=== PATIENT | male | born 1950 | race Caucasian/White ===

== ENCOUNTER 2016-04-03 20:22 | Emergency (ER) | payer MEDICAID, OTHER ==
[~2016-04-03] VITALS: Ht 170.2 cm; Wt 71.8 kg
[~2016-04-03 20:22] MED LIST: ASPI81TA3 PO; METO100T13 PO; SMV40T PO
[2016-04-03 20:25] VITALS: Ht 170.2 cm; Wt 71.8 kg
[2016-04-03] MEDS ORDERED: ONDANSETRON 4 MG INJ IV STA (20:50)
[2016-04-03] MEDS ORDERED: SOD CHLORIDE 0.9% 500 ML IV STA (20:50)
[2016-04-03] MEDS ORDERED: morphine 4 MG/ML VIAL IV STA (20:50)
--- NOTE | 2016-04-03 20:53 | ERD ---
ER Documentation Chief Complaint Date/Time DATE: 04/03/16 TIME: 20:52 Chief Complaint CP X 1 HR W/ SOB HX HEART ATTACK HPI 66-year-old male history of hypertension, hyperlipidemia, coronary artery disease, bladder CA, right nephrectomy and incisional hernia ambulatory to the ED with a son complaining of acute onset of moderate to severe, sharp and achy, nonradiating epigastric abdominal pain with nausea but no vomiting, diarrhea or constipation. Mild dyspnea which is since resolved. In triage complaint of chest pain but points to his epigastrium. Pain started suddenly while walking around his house. No relieving or exacerbating factors. Denies dysuria, polyuria, hematuria or flank pain. No chest pain or palpitations. No URI symptoms or cough. No hematemesis, hematochezia or melanotic stools. No leg pain or swelling. No fevers or chills. ROS All systems reviewed and are negative except as per history of present illness. Medications Home Meds Active Scripts Pantoprazole* (Protonix*) 40 Mg Tablet.dr, 40 MG PO DAILY, #14 TAB Prov:REX FORDE MD 04/04/16 Tramadol HCl (Tramadol HCl) 50 Mg Tablet, 50 MG PO Q6, #10 TAB Prov:REX FORDE MD 04/04/16 Reported Medications Cyclobenzaprine Hcl* (Cyclobenzaprine Hcl*) 5 Mg Tablet, 5 MG PO DAILY Y for PRN , #60 TAB 04/03/16 Gemfibrozil* (Gemfibrozil*) 600 Mg Tablet, 600 MG PO BID, TAB 04/03/16 Amlodipine Besylate* (Norvasc*) 5 Mg Tablet, 5 MG PO DAILY, TAB 04/03/16 Pantoprazole* (Pantoprazole*) 40 Mg Tablet.dr, 40 MG PO DAILY, TAB 04/03/16 Metoprolol Succinate* (Toprol XL*) 100 Mg Tab.sr.24h, 100 MG PO DAILY, TAB 10/14/13 Aspirin* (Aspirin* Chew) 81 Mg Tab.chew, 81 MG PO DAILY, TAB.CHEW 10/14/13 Discontinued Reported Medications Simvastatin (Simvastatin) 40 Mg Tablet, 40 MG PO HS, TAB 10/14/13 Allergies Allergies: Coded Allergies: Penicillins (Verified Allergy, Unknown, 04/03/16) PMhx/Soc Reviewed in chart. As per HPI. History of Surgery: Yes (bladder surgery; right kidney removed) Anesthesia Reaction: No Hx Neurological Disorder: No Hx Respiratory Disorders: No Hx Cardiac Disorders: Yes (Minor [place] Hx; HTN) Hx Psychiatric Problems: No Hx Miscellaneous Medical Probl: Yes (bladder ca) Hx Alcohol Use: No Hx Substance Use: No Hx Tobacco Use: No ([id number] smoking history quit approximately 9 years ago ) FmHx Family history of hypertension but no CAD, stroke or cancer. Physical Exam Vitals Vital Signs Date Time Temp Pulse Resp B/P Pulse Ox O2 Delivery O2 Flow Rate FiO2 04/04/16 00:28 98.7 69 20 165/95 98 Room Air 04/03/16 22:36 66 20 102/47 100 Room Air 04/03/16 20:25 97.3 95 20 236/101 100 Physical Exam Const: Alert, moderate distress due to pain. Head: Atraumatic Eyes: Normal Conjunctiva ENT: Normal External Ears, Nose and Mouth. Neck: Full range of motion. Nontender. Resp: Clear to auscultation bilaterally Cardio: Regular rate and rhythm, no murmurs Abd: Soft, epigastric and right upper quadrant tenderness. Incisional hernia easily reducible. Skin: No petechiae or rashes Back: No midline or flank tenderness Ext: No cyanosis, or edema Neur: Awake and alert Psych: Normal Mood and Affect Result Diagram: 04/03/16200504/03/162005 Results 24 hrs Laboratory Tests Test 04/03/16 20:06 Alanine Aminotransferase (ALT/SGPT) 23IU/L Albumin 4.8g/dl Albumin/Globulin Ratio 1.11 Alkaline Phosphatase 162IU/L Anion Gap 23 Aspartate Amino Transf (AST/SGOT) 26IU/L Basophils # 0.110^3/ul Basophils % 1.1% Blood Urea Nitrogen 15mg/dl Calcium Level 10.5mg/dl Carbon Dioxide Level 25mmol/L Chloride Level 103mmol/L Creatinine 1.00mg/dl Direct Bilirubin 0.00mg/dl Eosinophils # 0.510^3/ul Eosinophils % 4.0% Globulin 4.30g/dl Glucose Level 90mg/dl Hematocrit 43.5% Hemoglobin 13.9g/dl Indirect Bilirubin 0.1mg/dl Lipase 135U/L Lymphocytes # 3.210^3/ul Lymphocytes % 24.5% Mean Corpuscular Hemoglobin 26.4pg Mean Corpuscular Hemoglobin Concent 32.0g/dl Mean Corpuscular Volume 82.5fl Mean Platelet Volume 11.1fl Monocytes # 0.910^3/ul Monocytes % 6.6% Neutrophils # 8.410^3/ul Neutrophils % 63.5% Nucleated Red Blood Cells # 0.010^3/ul Nucleated Red Blood Cells % 0.0/100WBC Platelet Count 66322^3/UL Potassium Level 4.0mmol/L Red Blood Count 5.2710^6/ul Red Cell Distribution Width 15.8% Sodium Level 147mmol/L Total Bilirubin 0.1mg/dl Total Protein 9.1g/dl Troponin I < 0.010ng/ml White Blood Count 13.210^3/ul Current Medications Medications (Trade) Dose Ordered Sig/Rao Route PRN Reason Start Time Stop Time Status Last Admin Dose Admin Sodium Chloride (NS) 500 ml @ 500 mls/hr Q1H STAT IV 04/03/16 20:50 04/03/16 21:49 DC 04/03/16 21:32 Morphine Sulfate (morphine) 4 mg ONCE STAT IV 04/03/16 20:50 04/03/16 20:52 DC 04/03/16 21:35 Ondansetron HCl (Zofran Inj) 4 mg ONCE STAT IV 04/03/16 20:50 04/03/16 20:52 DC 04/03/16 21:35 Pantoprazole (Protonix Iv) 40 mg ONCE ONCE IV 04/03/16 21:00 04/03/16 21:01 DC 04/03/16 21:35 RHYTHM STRIP INTERPRETATION: Time: 20:50. Sinus rhythm. Ventricular rate 72. No ectopy indication: Abdominal pain. EKG: Time: 20:31. Sinus rhythm. Ventricular rate 77, normal CO and QRS intervals. No acute ST segment elevation or depression. No axis deviation or ectopy. EP Impression: Normal EKG IMAGING: PROCEDURE: CT Abdomen and Pelvis without contrast. CLINICAL INDICATION: Right upper quadrant pain. History of right nephrectomy and bladder cancer.. TECHNIQUE: CT scan of the abdomen and pelvis was performed on a multidetector slice CT scanner. No intravenous contrast material was utilized. Sagittal and coronal reformatted images were obtained from the axial source images. Images were reviewed on a high-resolution PACS workstation. Exam CTDlvol = 10 mGy and DLP = 549 Gy-cm. One of the following 3 dose reduction techniques were used: Automated exposure control; adjustment of the mA and/or kV according to patient size; or use of iterative reconstruction technique. COMPARISON: CT chest 10/14/2013 FINDINGS: There is a nonobstructing right and transverse colon hernia of the anterior lateral right abdominal wall just below the liver. There is no obstruction or ileus. The appendix is visualized and is normal in size. There is no evidence for acute appendicitis. There is no evidence for diverticulitis. There is no free fluid. The liver is enlarged measuring 20 cm length.. No intrahepatic lesions are identified. The gallbladder is well distended with slight surrounding infiltration.. There is no definite biliary ductal dilation. Pancreas is normal in appearance. Spleen is unremarkable.. There are no adrenal masses. The aorta is normal caliber. There are atherosclerotic dash calcification. There are multiple upper abdominal retroperitoneal surgical clips adjacent to the IVC and aorta. Right kidney is absent. Left kidney is normal in appearance without hydronephrosis, mass or calculus. Ureters are of normal caliber. There are surgical clips adjacent to the right lateral and base of the urinary bladder. Urinary bladder is unremarkable. Prostate gland is unremarkable. The bones are unremarkable. Limited evaluation lung bases demonstrates emphysematous changes. Right middle lobe punctate calcifications/granulomas present. IMPRESSION: 1. Right upper abdominal anterior lateral ventral hernia containing nonobstructed right and transverse colon. 2. Status post right nephrectomy. Surgical clips adjacent to the right lateral aspect the urinary bladder. Left kidney and urinary bladder otherwise unremarkable. 3. Well distended gallbladder with slight surrounding infiltration. No calcified gallstones are gross wall thickening. No definite biliary ductal dilatation. Correlation with ultrasound is recommended. 4. Hepatomegaly. 5. Atherosclerotic vascular calcifications. 6. Emphysematous changes at the lung bases. Right middle lobe punctate calcification consistent with a granuloma, unchanged. RPTAT: HMVK .Camilo Swanson MD, MD Date Time Electronically viewed and signed by .Camilo Swanson MD, on 04/03/2016 23:06 .K/ PROCEDURE: XR Chest. CLINICAL INDICATION: Chest pain. Abdominal pain TECHNIQUE: Portable AP semi erect view of the chest was obtained. COMPARISON: 11/04/2013 FINDINGS: The cardiomediastinal silhouette is within normal limits. The lungs are clear. There is no evidence for pleural effusion, pneumothorax or pulmonary vascular congestion. The osseous structures are intact with no evidence for acute abnormality. No evidence of free air below the diaphragm. RPTAT:HJJR IMPRESSION: No evidence for acute intrathoracic pathology or change from prior study. Physician Rianna Date Time Electronically viewed and signed by Physician Rianna on 04/03/2016 21:35 JR/ PROCEDURE: ULTRASOUND LIMITED ABDOMEN CLINICAL INDICATION: 66-year-old male with abdominal pain. TECHNIQUE: Multiple sonographic of the right upper quadrant of the abdomen were obtained. The images were reviewed on a PACS workstation. COMPARISON: CT abdomen/pelvis April 03, 2016. FINDINGS: The pancreas is not well visualized secondary to overlying bowel gas. The liver displays normal echogenicity. The liver measures 18.0 cm in length. No evidence of intrahepatic biliary ductal dilatation is seen. The portal and hepatic veins are unremarkable. The gallbladder demonstrates no wall thickening, sludge, nor stones. No pericholecystic fluid is seen. The common bile duct measures 4.2 mm and is not dilated. The right kidney is not visualized consistent with history of prior nephrectomy. No free fluid is seen. IMPRESSION: Status post right nephrectomy otherwise unremarkable right upper quadrant abdominal ultrasound. .Niko Huddleston MD, MD Date Time Electronically viewed and signed by .Niko Huddleston MD, on 04/04/2016 00:00 .M/ Procedures/MDM DOCUMENTS REVIEWED: ED nurse, prior ED, prior records ED COURSE: Morphine 4 mg/Zofran 4 mg IV. REEXAMINATION/REEVALUATION: Time: 23: 40. Doing well. Pain resolved. [employer]-year-old male history of hypertension, hyperlipidemia, coronary artery disease, bladder CA, right nephrectomy and incisional hernia ambulatory to the ED complaining of epigastric abdominal pain. No chest pain, ischemic EKG changes, elevated troponin or other signs of acute coronary syndrome. Epigastric right upper quadrant abdominal tenderness but no rebound or evidence of acute peritonitis. CT reveals possible gallbladder inflammation but ultrasound is unremarkable. No pancreatitis. No evidence of metastatic disease. Possible PUD/gastritis/GERD. Abdominal pain of unknown etiology. In the absence of signs of serious disease symptomatic treatment with urgent, mandatory outpatient followup is appropriate. Stable for discharge with precautionary instructions and outpatient followup as counseled. Counseled patient and family regarding diagnostic workup, diagnosis and need for followup. Understands to return to ED if symptoms recur, worsen or any other concerns. Departure Diagnosis: Primary Impression: Abdominal pain, acute, epigastric Additional Impressions: Incisional hernia without obstruction or gangrene H/O carcinoma of bladder H/O unilateral nephrectomy Condition: Stable REX FORDE MD Apr 03, 2016 20:53
[2016-04-03 20:57] LABS: ADD SCAN DIFF NO
[2016-04-03 21:00] LABS: BASOPHIL # 0.1 10^3/ul (0.0-0.1); BASOPHILS % 1.1 % (0.0-2.0); EOSINOPHILS # 0.5 10^3/ul (0.0-0.5); HEMATOCRIT 43.5 % (42.0-52.0); HEMOGLOBIN 13.9 g/dl (14.0-18.0); LYMPHOCYTES # 3.2 10^3/ul (0.8-2.9); LYMPHOCYTES % 24.5 % (15.0-51.0); MEAN CORPUSCULAR HEMOGLOBIN 26.4 pg (29.0-33.0); MEAN CORPUSCULAR VOLUME 82.5 fl (82.0-101.0); MEAN PLATELET VOLUME 11.1 fl (7.4-10.4); MONOCYTE # 0.9 10^3/ul (0.3-0.9); MONOCYTES % 6.6 % (0.0-11.0); NEUTROPHIL # 8.4 10^3/ul (1.6-7.5); NEUTROPHILS % 63.5 % (39.0-77.0); PLATELET COUNT 317 10^3/UL (140-415); RED BLOOD COUNT 5.27 10^6/ul (4.70-6.10); RED CELL DISTRIBUTION WIDTH 15.8 % (11.5-14.5); WHITE BLOOD COUNT 13.2 10^3/ul (4.8-10.8)
[2016-04-03] MEDS ORDERED: PANTOPRAZOLE 40 MG INJ IV ONE (21:00)
[2016-04-03 21:17] LABS: ALBUMIN 4.8 g/dl (3.3-4.9); CHLORIDE 103 mmol/L (97-110)
[2016-04-03 21:18] LABS: SODIUM 147 mmol/L (135-144)
[2016-04-03 21:20] LABS: ALBUMIN/GLOBULIN RATIO 1.11; ALKALINE PHOSPHATASE 162 IU/L (42-121); ANION GAP 23 (8-16); ASPARTATE AMINO TRANSFERASE 26 IU/L (15-46); BILIRUBIN,INDIRECT 0.1 mg/dl (0-1.1); BILIRUBIN,TOTAL 0.1 mg/dl (0.2-1.3); BLOOD UREA NITROGEN 15 mg/dl (7-20); CARBON DIOXIDE 25 mmol/L (21-31); TOTAL PROTEIN 9.1 g/dl (6.1-8.1)
[2016-04-03] MEDS ORDERED: AMLO5TAB4 PO (21:20)
[2016-04-03] MEDS ORDERED: PANT40TA4 PO (21:20)
[2016-04-03 21:21] LABS: ALANINE AMINOTRANSFERASE 23 IU/L (13-69); CALCIUM 10.5 mg/dl (8.4-10.2); GLUCOSE 90 mg/dl (70-220)
[2016-04-03] MEDS ORDERED: GEMF600T60 PO (21:21)
[2016-04-03] MEDS ORDERED: CYCL5TAB PO (21:21)
[2016-04-03 21:34] LABS: TROPONIN-I < 0.010 ng/ml (0.00-0.12)
--- NOTE | 2016-04-03 21:35 | RADRPT ---
PROCEDURE: XR Chest. CLINICAL INDICATION: Chest pain. Abdominal pain TECHNIQUE: Portable AP semi erect view of the chest was obtained. COMPARISON: 11/04/2013 FINDINGS: The cardiomediastinal silhouette is within normal limits. The lungs are clear. There is no evidenc e for pleural effusion, pneumothorax or pulmonary vascular congestion. The osseous structures are i ntact with no evidence for acute abnormality. No evidence of free air below the diaphragm. RPTAT:HJJR IMPRESSION: No evidence for acute intrathoracic pathology or change from prior study. Physician Rianna Date Time Electronically viewed and signed by Physician Rianna on 04/03/2016 21:35 JR/
--- NOTE | 2016-04-03 23:06 | RADRPT ---
PROCEDURE: CT Abdomen and Pelvis without contrast. CLINICAL INDICATION: Right upper quadrant pain. History of right nephrectomy and bladder cancer.. TECHNIQUE: CT scan of the abdomen and pelvis was performed on a multidetector slice CT scanner. N o intravenous contrast material was utilized. Sagittal and coronal reformatted images were obtained from the axial source images. Images were reviewed on a high-resolution PACS workstation. Exam CTDl vol = 10 mGy and DLP = 549 Gy-cm. One of the following 3 dose reduction techniques were used: Autom ated exposure control; adjustment of the mA and/or kV according to patient size; or use of iterative reconstruction technique. COMPARISON: CT chest 10/14/2013 FINDINGS: There is a nonobstructing right and transverse colon hernia of the anterior lateral right abdominal wall just below the liver. There is no obstruction or ileus. The appendix is visualized and is nor mal in size. There is no evidence for acute appendicitis. There is no evidence for diverticulitis. There is no free fluid. The liver is enlarged measuring 20 cm length.. No intrahepatic lesions are identified. The gallbla dder is well distended with slight surrounding infiltration.. There is no definite biliary ductal di lation. Pancreas is normal in appearance. Spleen is unremarkable.. There are no adrenal masses. T he aorta is normal caliber. There are atherosclerotic dash calcification. There are multiple upper abdominal retroperitoneal surgical clips adjacent to the IVC and aorta. Right kidney is absent. Left kidney is normal in appearance without hydronephrosis, mass or calculu s. Ureters are of normal caliber. There are surgical clips adjacent to the right lateral and base of the urinary bladder. Urinary bladder is unremarkable. Prostate gland is unremarkable. The bones are unremarkable. Limited evaluation lung bases demonstrates emphysematous changes. Right middle lobe punctate calcif ications/granulomas present. IMPRESSION: 1. Right upper abdominal anterior lateral ventral hernia containing nonobstructed right and transve rse colon. 2. Status post right nephrectomy. Surgical clips adjacent to the right lateral aspect the urinary bladder. Left kidney and urinary bladder otherwise unremarkable. 3. Well distended gallbladder with slight surrounding infiltration. No calcified gallstones are gr oss wall thickening. No definite biliary ductal dilatation. Correlation with ultrasound is recommend ed. 4. Hepatomegaly. 5. Atherosclerotic vascular calcifications. 6. Emphysematous changes at the lung bases. Right middle lobe punctate calcification consistent wit h a granuloma, unchanged. RPTAT: HMVK .Camilo Swanson MD, Date Time Electronically viewed and signed by .Camilo Swanson MD, on 04/03/2016 23:06 .K/
--- NOTE | 2016-04-04 00:01 | RADRPT ---
PROCEDURE: ULTRASOUND LIMITED ABDOMEN CLINICAL INDICATION: 66-year-old male with abdominal pain. TECHNIQUE: Multiple sonographic of the right upper quadrant of the abdomen were obtained. The imag es were reviewed on a PACS workstation. COMPARISON: CT abdomen/pelvis April 03, 2016. FINDINGS: The pancreas is not well visualized secondary to overlying bowel gas. The liver displays normal echogenicity. The liver measures 18.0 cm in length. No evidence of intrah epatic biliary ductal dilatation is seen. The portal and hepatic veins are unremarkable. The gallbladder demonstrates no wall thickening, sludge, nor stones. No pericholecystic fluid is see n. The common bile duct measures 4.2 mm and is not dilated. The right kidney is not visualized consistent with history of prior nephrectomy. No free fluid is seen. IMPRESSION: Status post right nephrectomy otherwise unremarkable right upper quadrant abdominal ultrasound. .Niko Huddleston MD, MD Date Time Electronically viewed and signed by .Niko Huddleston MD, on 04/04/2016 00:00 .M/
[2016-04-04] MEDS ORDERED: TRAM50TA2 PO (00:13)
[2016-04-04] MEDS ORDERED: PANT40TA3 PO (00:13)
[2016-04-04 00:28] VITALS: BP 165/95; PULSE 69; RESP 20; TEMP 98.7
== END 2016-04-04 00:30 | disposition home or self-care (01) ==
LOC: E/R 20:22
DX: R10.13 Epigastric pain (principal); K43.2 Incisional hernia without obstruction or gangrene; I10 Essential (primary) hypertension; Z85.51 Personal history of malignant neoplasm of bladder; Z79.82 Long term (current) use of aspirin; Z90.5 Acquired absence of kidney; Z87.891 Personal history of nicotine dependence
CPT/HCPCS: 36415; 71010; 74176; 76705; 80053; 83690; 84484; 85025; 93005; 96374; 96375; C9113; J2270; J2405; J7040; Z7502

== ENCOUNTER 2016-06-05 19:42 | Emergency (ER) | payer OTHER ==
[~2016-06-05] VITALS: Ht 170.2 cm; Wt 68.2 kg
[~2016-06-05 19:42] MED LIST changes: +AMLO5TAB4 PO; +CYCL5TAB PO; +GEMF600T60 PO; +PANT40TA3 PO; +PANT40TA4 PO; -SMV40T PO; +TRAM50TA2 PO
[2016-06-05 19:59] VITALS: Ht 170.2 cm; Wt 68.2 kg
[2016-06-05] MEDS ORDERED: ONDANSETRON 4 MG INJ IV STA (21:40)
[2016-06-05] MEDS ORDERED: morphine 4 MG/ML VIAL IV STA (21:40)
[2016-06-05] MEDS ORDERED: FAMOTIDINE 20 MG INJ IV STA (21:40)
--- NOTE | 2016-06-05 22:19 | RADRPT ---
PROCEDURE: Portable chest x-ray. CLINICAL INDICATION: Abdominal pain. TECHNIQUE: Portable AP view of the chest. COMPARISON: 04/03/2016. FINDINGS: There is minimal bibasilar atelectasis. No pulmonary edema or conolidation is identified. There ar e aortic calcifications. The cardiac silhouette is magnified. No pleural effusion is seen. There is no pneumothorax. There is no pneumoperitoneum. IMPRESSION: 1. No evidence of acute cardiopulmonary disease. 2. Aortic atherosclerosis. 3. No pneumoperitoneum. RPTAT: HTAR .John Najera MD, Date Time Electronically viewed and signed by .John Najera MD, on 06/05/2016 22:19 .R/
[2016-06-05 22:20] LABS: ADD SCAN DIFF NO
[2016-06-05 22:21] LABS: BASOPHIL # 0.2 10^3/ul (0.0-0.1); EOSINOPHILS # 0.4 10^3/ul (0.0-0.5); EOSINOPHILS % 2.7 % (0.0-7.0); HEMATOCRIT 38.6 % (42.0-52.0); HEMOGLOBIN 12.1 g/dl (14.0-18.0); LYMPHOCYTES # 2.3 10^3/ul (0.8-2.9); LYMPHOCYTES % 13.9 % (15.0-51.0); MEAN CORPUSCULAR HEMOGLOBIN 26.1 pg (29.0-33.0); MEAN CORPUSCULAR HGB CONC 31.3 g/dl (32.0-37.0); MEAN CORPUSCULAR VOLUME 83.2 fl (82.0-101.0); MEAN PLATELET VOLUME 12.4 fl (7.4-10.4); MONOCYTE # 0.9 10^3/ul (0.3-0.9); MONOCYTES % 5.5 % (0.0-11.0); NEUTROPHIL # 12.6 10^3/ul (1.6-7.5); NEUTROPHILS % 76.4 % (39.0-77.0); PLATELET COUNT 278 10^3/UL (140-415); RED BLOOD COUNT 4.64 10^6/ul (4.70-6.10); RED CELL DISTRIBUTION WIDTH 15.4 % (11.5-14.5); WHITE BLOOD COUNT 16.5 10^3/ul (4.8-10.8)
--- NOTE | 2016-06-05 22:22 | RADRPT ---
PROCEDURE: CT Abdomen and pelvis without contrast. CLINICAL INDICATION: Abdominal pain. TECHNIQUE: CT scan of the abdomen and pelvis was performed on a multi-detector high-resolution CT scanner. Contiguous axial images were obtained from the lung bases to the ischial tuberosities wit hout intravenous contrast. Coronal and sagittal reformatted images were also obtained. Images were reviewed on the PACS workstation. One or more of the following dose reduction techniques were used: - Automated exposure control. - Adjustment of the mA and/or kV according to patient size. - Use of iterative reconstruction technique. Exam CTD/vol = 8.80 mGy. Total exam DLP = 463.10 mGy-cm. COMPARISON: 04/03/2016. FINDINGS: Evaluation of the lung bases demonstrates mild bibasilar atelectasis. There are emphysematous redmond es bilaterally. Abdomen: The liver is normal in size. There is no focal mass or dilatation of the biliary tree. T he gallbladder is not distended. The spleen, pancreas and bilateral adrenal glands are within ivy l limits. The patient status post right nephrectomy. The left kidney is normal in size with no con tour deforming mass identified. There is no radiopaque renal or ureteral calculus identified. Ther e is no hydronephrosis or hydroureter. There is no retroperitoneal adenopathy. The abdominal aorta is of normal caliber with scattered atherosclerotic calcifications. Again demonstrated is a large right ventral abdominal wall hernia containing the right and transvers e colon. There is no bowel obstruction or free air. A normal appendix is identified. There is no diverticulosis or diverticulitis. There is no ascites. Pelvis: The bladder is unremarkable. There are bilateral small inguinal hernias containing fat. T he prostate and seminal vesicles are within normal limits. There is no significant pelvic adenopath y or free fluid. Evaluation of the osseous structures demonstrates no suspicious lytic or blastic lesion. IMPRESSION: Large right ventral abdominal wall hernia containing right and transverse colon, unchanged. There i s no bowel obstruction. Bilateral small inguinal hernias containing fat. Status post right nephrectomy. Vascular calcifications reflective of atherosclerosis. Mild bibasilar atelectasis and emphysematous changes. Otherwise no acute abnormality identified within the abdomen and pelvis. .Camden Strickland, MD, Date Time Electronically viewed and signed by .Camden Strickland MD, on 06/05/2016 22:21 .T/
[2016-06-05 22:23] LABS: ADD UMIC YES; URINE BILIRUBIN (Dip) NEGATIVE (NEGATIVE); URINE BLOOD (Dip) 2+ (NEGATIVE); URINE COLOR LT. YELLOW (YELLOW); URINE GLUCOSE (Dip) NEGATIVE (NEGATIVE); URINE KETONES (Dip) NEGATIVE (NEGATIVE); URINE LEUKOCYTE ESTERASE (Dip) NEGATIVE (NEGATIVE); URINE NITRITE (Dip) NEGATIVE (NEGATIVE); URINE TOTAL PROTEIN (Dip) NEGATIVE (NEGATIVE); URINE UROBILINOGEN (Dip) 0.2 E.U./dL (0.1-1.0)
[2016-06-05 22:31] LABS: INR 0.95; PROTIME 12.7 Sec (12.2-14.2)
[2016-06-05 22:32] LABS: PARTIAL THROMBOPLASTIN TIME 36.7 Sec (25.0-35.0)
[2016-06-05 22:33] LABS: ALANINE AMINOTRANSFERASE 20 IU/L (13-69); ALBUMIN 4.4 g/dl (3.3-4.9); ALBUMIN/GLOBULIN RATIO 0.91; ALKALINE PHOSPHATASE 170 IU/L (42-121); ANION GAP 16 (8-16); ASPARTATE AMINO TRANSFERASE 17 IU/L (15-46); BLOOD UREA NITROGEN 19 mg/dl (7-20); CARBON DIOXIDE 21 mmol/L (21-31); CHLORIDE 106 mmol/L (97-110); GLUCOSE 112 mg/dl (70-220); POTASSIUM 3.9 mmol/L (3.5-5.1); SODIUM 139 mmol/L (135-144); TOTAL PROTEIN 9.2 g/dl (6.1-8.1)
[2016-06-05 22:38] LABS: TRANSITIONAL EPI CELLS,URINE FEW
[2016-06-05 22:58] LABS: TROPONIN-I < 0.012 ng/ml (0.00-0.12)
[2016-06-05] MEDS ORDERED: HYDROmorphONE 1 MG/ML SYG IV STA (23:12)
[2016-06-06] MEDS ORDERED: SOD CHLORIDE 0.9% 1,000 ML IV SCH (01:19)
[2016-06-06] MEDS ORDERED: NACL 0.9% 3 ML SYG IV SCH (01:30)
[2016-06-06] MEDS ORDERED: ONDANSETRON 4 MG TAB PO PRN (01:30)
[2016-06-06] MEDS ORDERED: ACETAMINOPHEN 325 MG TAB PO PRN (01:30)
[2016-06-06] MEDS ORDERED: HYDROmorphONE 1 MG/ML SYG IV PRN (01:30)
--- NOTE | 2016-06-06 01:31 | ERA ---
ER Documentation Chief Complaint Date/Time DATE: 06/06/16 TIME: 01:30 Chief Complaint SEVERE MID ABDOMINAL PAIN X N/V. B/P HIGH HPI This is a 64 mL severe mid abdominal pain with mild nausea and one episode of vomiting which nonbilious nonbloody. Pain radiates to the epigastric region up to the chest. Noted that his blood pressure is high. Pain is mild to moderate intensity. No other current complaints. ROS All systems reviewed and are negative except as per history of present illness. Medications Home Meds Reported Medications Cyclobenzaprine Hcl* (Cyclobenzaprine Hcl*) 5 Mg Tablet, 5 MG PO DAILY Y for PRN , #60 TAB 04/03/16 Gemfibrozil* (Gemfibrozil*) 600 Mg Tablet, 600 MG PO BID, TAB 04/03/16 Amlodipine Besylate* (Norvasc*) 5 Mg Tablet, 5 MG PO DAILY, TAB 04/03/16 Pantoprazole* (Pantoprazole*) 40 Mg Tablet.dr, 40 MG PO DAILY, TAB 04/03/16 Metoprolol Succinate* (Toprol XL*) 100 Mg Tab.sr.24h, 100 MG PO DAILY, TAB 10/14/13 Aspirin* (Aspirin* Chew) 81 Mg Tab.chew, 81 MG PO DAILY, TAB.CHEW 10/14/13 Discontinued Scripts Pantoprazole* (Protonix*) 40 Mg Tablet.dr, 40 MG PO DAILY, #14 TAB Prov:REX FORDE MD 04/04/16 Tramadol HCl (Tramadol HCl) 50 Mg Tablet, 50 MG PO Q6, #10 TAB Prov:REX FORDE MD 04/04/16 Allergies Allergies: Coded Allergies: Penicillins (Verified Allergy, Unknown, 06/05/16) ampicillin (Verified Allergy, Unknown, 06/05/16) PMhx/Soc History of Surgery: Yes (bladder surgery; right kidney removed) Anesthesia Reaction: No Hx Neurological Disorder: No Hx Respiratory Disorders: No Hx Cardiac Disorders: Yes (Minor [place] Hx; HTN,high cholesterol) Hx Psychiatric Problems: No Hx Miscellaneous Medical Probl: Yes (bladder ca) Hx Alcohol Use: Yes (socially) Hx Substance Use: No Hx Tobacco Use: Yes (00-syrn-icth smoking history quit approximately 9 years ago) Smoking Status: Former smoker Physical Exam Vitals Vital Signs Date Time Temp Pulse Resp B/P Pulse Ox O2 Delivery O2 Flow Rate FiO2 06/06/16 00:00 83 161/87 06/05/16 22:05 80 20 174/100 100 Room Air 06/05/16 19:59 98.9 91 20 191/106 97 Physical Exam Const: [] Head: Atraumatic Eyes: Normal Conjunctiva ENT: Normal External Ears, Nose and Mouth. Neck: Full range of motion..~ No meningismus. Resp: Clear to auscultation bilaterally Cardio: Regular rate and rhythm, no murmurs Abd: Soft, non tender, non distended. Normal bowel sounds Skin: No petechiae or rashes Back: No midline or flank tenderness Ext: No cyanosis, or edema Neur: Awake and alert Psych: Normal Mood and Affect Result Diagram: 06/05/16219906/05/162199 Results 24 hrs Laboratory Tests Test 06/05/16 22:00 White Blood Count 16.510^3/ul Red Blood Count 4.6410^6/ul Hemoglobin 12.1g/dl Hematocrit 38.6% Mean Corpuscular Volume 83.2fl Mean Corpuscular Hemoglobin 26.1pg Mean Corpuscular Hemoglobin Concent 31.3g/dl Red Cell Distribution Width 15.4% Platelet Count 64355^3/UL Mean Platelet Volume 12.4fl Neutrophils % 76.4% Lymphocytes % 13.9% Monocytes % 5.5% Eosinophils % 2.7% Basophils % 1.0% Nucleated Red Blood Cells % 0.0/100WBC Neutrophils # 12.610^3/ul Lymphocytes # 2.310^3/ul Monocytes # 0.910^3/ul Eosinophils # 0.410^3/ul Basophils # 0.210^3/ul Nucleated Red Blood Cells # 0.010^3/ul Prothrombin Time 12.7Sec Prothrombin Time Ratio 1.0 INR International Normalized Ratio 0.95 Activated Partial Thromboplast Time 36.7Sec Urine Color LT. YELLOW Urine Clarity CLEAR Urine pH 5.5 Urine Specific [place] 1.015 Urine Ketones NEGATIVE Urine Nitrite NEGATIVE Urine Bilirubin NEGATIVE Urine Urobilinogen 0.2 E.U./dL Urine Leukocyte Esterase NEGATIVE Urine Microscopic RBC 5-10/HPF Urine Microscopic WBC 0-2/HPF Urine Transitional Epithelial Cells FEW Urine Hemoglobin 2+ Urine Glucose NEGATIVE% Urine Total Protein NEGATIVE Sodium Level 139mmol/L Potassium Level 3.9mmol/L Chloride Level 106mmol/L Carbon Dioxide Level 21mmol/L Anion Gap 16 Blood Urea Nitrogen 19mg/dl Creatinine 1.10mg/dl Glucose Level 112mg/dl Calcium Level 10.0mg/dl Total Bilirubin 0.0mg/dl Direct Bilirubin 0.00mg/dl Indirect Bilirubin 0.0mg/dl Aspartate Amino Transf (AST/SGOT) 17IU/L Alanine Aminotransferase (ALT/SGPT) 20IU/L Alkaline Phosphatase 170IU/L Troponin I < 0.012ng/ml Total Protein 9.2g/dl Albumin 4.4g/dl Globulin 4.80g/dl Albumin/Globulin Ratio 0.91 Lipase 144U/L Current Medications Medications (Trade) Dose Ordered Sig/Rao Route PRN Reason Start Time Stop Time Status Last Admin Dose Admin Morphine Sulfate (morphine) 4 mg ONCE STAT IV 06/05/16 21:40 06/05/16 21:42 DC 06/05/16 22:21 Ondansetron HCl (Zofran Inj) 4 mg ONCE STAT IV 06/05/16 21:40 06/05/16 21:42 DC 06/05/16 22:21 Famotidine (Pepcid Iv) 20 mg ONCE STAT IV 06/05/16 21:40 06/05/16 21:42 DC 06/05/16 22:21 Hydromorphone HCl (Dilaudid) 1 mg ONCE STAT IV 06/05/16 23:12 06/05/16 23:13 DC 06/05/16 23:20 Amlodipine Besylate (Norvasc) 5 mg DAILY PO 06/06/16 09:00 UNV Aspirin (Aspirin) 81 mg DAILY PO 06/06/16 09:00 UNV Gemfibrozil (Lopid) 600 mg BID PO 06/06/16 09:00 UNV Metoprolol Succinate (Toprol Xl) 100 mg DAILY PO 06/06/16 09:00 UNV Pantoprazole 40 mg 40 mg DAILY PO 06/06/16 09:00 UNV Sodium Chloride (NS) 1,000 ml @ 100 mls/hr Q10H IV 06/06/16 01:19 UNV IV Flush (NS 3 ml) 3 ml PER PROTOCOL IV 06/06/16 01:30 UNV Ondansetron HCl (Zofran Tab) 4 mg Q6H PRN PO NAUSEA AND/OR VOMITING 06/06/16 01:30 UNV Acetaminophen (Tylenol Tab) 650 mg Q6H PRN PO PAIN LEVEL 1-3 OR FEVER 06/06/16 01:30 UNV Hydromorphone HCl (Dilaudid) 0.5 mg Q4H PRN IV PAIN LEVEL 7-10 06/06/16 01:30 UNV Pantoprazole (Protonix Iv) 40 mg DAILY@06 IV 06/06/16 06:00 UNV Procedures/MDM EKG: Rate/Rhythm: [Normal Sinus Rhythm] QRS, ST, T-waves: [No changes consistent w/ acute ischemia] Impression: [No evidence of ischemia or arrhythmia] Chest X-ray 1V Interpreted by me: Soft Tissue: No acute abnormalities Bones: No acute abnormalities Mediastinum/Cardiac Silhouette/Lungs: [No acute abnormalities] Patient's symptoms are concerning for cardiac cause will require inpatient workup and continuous monitoring. Further w/u for ischemia, arrhythmia, PE or dissection will be deferred to the inpatient team. Accepting Care Team: Current data and ongoing care discussed. Time: 1 AM Primary Provider: Hospitalist Consulting: [XOXOXO] Outstanding Data: none Departure Diagnosis: Primary Impression: Abdominal pain Qualified Code: R10.13 - Epigastric pain Additional Impression: Chest pain Qualified Code: R07.9 - Chest pain, unspecified type Condition: Serious ALICIA KEANE June 06, 2016 01:31
--- NOTE | 2016-06-06 03:44 | HP ---
Date/Time of Note Date/Time of Note DATE: 06/06/16 TIME: 03:23 Assessment/Plan VTE Prophylaxis VTE Prophylaxis Intervention: SCD's Lines/Catheters IV [facility] Assessment/Plan Chief Complaint/Hosp Course This is a 66-year-old male being admitted to telemetry for #1 atypical chest pain -rule out ACS, with the patient's previous questionable history of ID, and risk factors patient will warrant further workup for cardiac causes. Trend troponins, telemetry monitoring, check echo, check lipids check TSH, check hemoglobin A1c. Chest x-ray negative for any acute process. EKG normal sinus rhythm with no overt ST abnormalities noted.Consider cardio consult. #2 abdominal pain: ACS versus abdominal etiology, there do not appear to be any acute findings on the CAT scan. Large ventral hernia is consistent and unchanged compared to previous CT scan from March 2016. This could be something viral in nature as patient has recently eaten out however since there are no signs of any nausea vomiting or diarrhea we cannot definitively say that this is a viral illness. We will continue pain control for pain management, acid petra for possible reflux symptoms. Mildly elevated alkaline phosphatase was also was slightly elevated on previous admission continue to follow. #3 leukocytosis: At the present time no overt source of infection is appreciated , since he does have abdominal pain this possibly could be related to that, however no fevers or any sources noted at this time. We will continue to follow. #4 hypertension continue current home medications amlodipine and metoprolol #5 hyperlipidemia: Continue gemfibrozil, check lipids #6 DVT and GI prophylaxis: SCDs in and acid petra Problems: HPI/ROS Admit Date/Time Admit Date/Time Hx of Present Illness This is a 66-year-old male with past medical history of hypertension hyperlipidemia, and questionable ID who presents to the ED with 1 day of epigastric pain/chest discomfort. Patient states that he was having sharp abdominal pains in the epigastric area that were radiating up to the left chest. Denies any nausea or vomiting. States the pain was sharp 10 out of 10 in intensity. He did have this pain in the past before. And he was worked up for abdominal causes but nothing was found. Patient states that for the last few days he has been eating outside food. No recent fevers cough or sputum production. He does state that his is sick at home. Allergies: Penicillin states that he gets a rash Medications: See MAR ROS Const: Does not appear in overt discomfort Eyes : No pain discharge or redness or change in visual acuity ENT: No pain, sore throat, congestion, congestion, dysphagia or discharge Respiratory: No shortness of breath, cough, sputum, wheezing, or pleuritic pain Cardiovascular: No chest pain, palpitation, PND, or edema GI : States the pain is improved since getting pain medications in the ER Genitourinary: No dysuria, hematuria, flank pain , discharge or CVA tenderness Musculoskeletal: No joint pain, back pain, neck pain, restricted range of motion in neck or joints Skin: No rash, bruising or hives Neuro: No headache, dizziness, syncope, seizure, focal weakness Endocrine: No polyuria, polydipsia, temperature intolerance Psych: No hallucination, depression, anxiety or suicidal ideation PMH/Family/Social Past Medical History Hypertension, hyperlipidemia, ID ? Past Surgical History Cardiac cath 2007, bladder procedure (secondary to bleeding denies cancer), right nephrectomy 2011 (does not know reason) Family History Significant Family History: hypertension Social History Smoking: Quit 8 years ago, 88-ceit-nfip history EtOH none Smoking Status: Former smoker Exam/Review of Systems Vital Signs Vitals Vital Signs Date Time Temp Pulse Resp B/P Pulse Ox O2 Delivery O2 Flow Rate FiO2 06/06/16 00:00 83 161/87 06/05/16 22:05 20 100 Room Air 06/05/16 19:59 98.9 Exam Exam General: The patient is well-developed, well-nourished man in acute distress. The patient is alert oriented -3 lying comfortably in bed. HEENT: Atraumatic, normocephalic. The pupils are equal, round and reactive. Extraocular motor are intact Neck: Supple with full range of motion. No rigidity or meningismus Chest: Nontender Lungs: Clear to auscultation bilaterally no crackles rales or wheezing Heart: Normal S1-S2, Regular rhythm and rate. No murmur Abdomen: Soft, diffuse tenderness to palpation, right abdominal visible lump/ hernia(states it has been that way since patient had right nephrectomy), surgical scars Extremities: Normal to inspection, no edema no cyanosis Neurologic: Normal mental status, speech normal, cranial nerves II through XII are intact, motor and sensory are intact, no focal weakness Additional Comments EKG: Normal sinus rhythm, no overt ST or T-wave abnormalities noted CT of the abdomen and pelvis IMPRESSION: Large right ventral abdominal wall hernia containing right and transverse colon , unchanged. There is no bowel obstruction. Bilateral small inguinal hernias containing fat. Status post right nephrectomy. Vascular calcifications reflective of atherosclerosis. Mild bibasilar atelectasis and emphysematous changes. Otherwise no acute abnormality identified within the abdomen and pelvis. Chest x-ray IMPRESSION: 1. No evidence of acute cardiopulmonary disease. 2. Aortic atherosclerosis. 3. No pneumoperitoneum. Labs Result Diagram: 06/05/16219906/05/162199 Medications Medications Current Medications Amlodipine Besylate (Norvasc) 5 mg DAILY PO ; Start 06/06/16 at 09:00 Aspirin (Aspirin) 81 mg DAILY PO ; Start 06/06/16 at 09:00 Gemfibrozil (Lopid) 600 mg BID PO ; Start 06/06/16 at 09:00 Metoprolol Succinate 100 mg 100 mg DAILY PO ; Start 06/06/16 at 09:00 Sodium Chloride (NS) 1,000 ml @ 100 mls/hr Q10H IV ; Start 06/06/16 at 01:19 Ondansetron HCl (Zofran Tab) 4 mg Q6H PRN PO NAUSEA AND/OR VOMITING; Start 06/06 at 01:30 Acetaminophen (Tylenol Tab) 650 mg Q6H PRN PO PAIN LEVEL 1-3 OR FEVER; Start at 01:30 Hydromorphone HCl (Dilaudid) 0.5 mg Q4H PRN IV PAIN LEVEL 7-10; Start 06/06/16 at 01:30 Pantoprazole (Protonix Iv) 40 mg DAILY@06 IV ; Start 06/06/16 at 06:00 YAMILE BARRAZA June 06, 2016 03:33
[2016-06-06 05:08] LABS: ADD SCAN DIFF NO
[2016-06-06 05:11] LABS: BASOPHIL # 0.1 10^3/ul (0.0-0.1); BASOPHILS % 1.1 % (0.0-2.0); EOSINOPHILS # 0.4 10^3/ul (0.0-0.5); HEMATOCRIT 36.6 % (42.0-52.0); HEMOGLOBIN 11.7 g/dl (14.0-18.0); LYMPHOCYTES # 2.3 10^3/ul (0.8-2.9); MEAN CORPUSCULAR HEMOGLOBIN 26.2 pg (29.0-33.0); MEAN CORPUSCULAR VOLUME 81.9 fl (82.0-101.0); MEAN PLATELET VOLUME 11.1 fl (7.4-10.4); MONOCYTE # 0.8 10^3/ul (0.3-0.9); MONOCYTES % 6.8 % (0.0-11.0); NEUTROPHIL # 8.6 10^3/ul (1.6-7.5); NEUTROPHILS % 69.8 % (39.0-77.0); PLATELET COUNT 317 10^3/UL (140-415); RED BLOOD COUNT 4.47 10^6/ul (4.70-6.10); WHITE BLOOD COUNT 12.3 10^3/ul (4.8-10.8)
[2016-06-06 05:28] LABS: CREATINE KINASE 50 IU/L (23-200)
[2016-06-06 05:30] LABS: ALBUMIN 4.1 g/dl (3.3-4.9); BILIRUBIN,INDIRECT 0.1 mg/dl (0-1.1); BILIRUBIN,TOTAL 0.1 mg/dl (0.2-1.3); CALCIUM 9.4 mg/dl (8.4-10.2); CREATININE 0.93 mg/dl (0.61-1.24); TOTAL PROTEIN 8.2 g/dl (6.1-8.1)
[2016-06-06 06:00] LABS: CK-MB 0.52 ng/ml (0.0-2.4); TROPONIN-I < 0.012 ng/ml (0.00-0.12)
[2016-06-06] MEDS ORDERED: PANTOPRAZOLE 40 MG INJ IV SCH (06:00)
[2016-06-06 06:30] VITALS: TEMP 98.2
[2016-06-06] MEDS ORDERED: AMLODIPINE 5 MG TAB PO SCH (09:00)
[2016-06-06] MEDS ORDERED: PANTOPRAZOLE (EC) 40 MG TAB PO SCH (09:00)
[2016-06-06] MEDS ORDERED: ASPIRIN 81 MG TAB PO SCH (09:00)
[2016-06-06] MEDS ORDERED: METOPROLOL (XL) 100 MG TAB PO SCH (09:00)
[2016-06-06] MEDS ORDERED: GEMFIBROZIL 600 MG TAB PO SCH (09:00)
[2016-06-06] MEDS ORDERED: hydrALAzine 20 MG INJ IV PRN (10:30)
[2016-06-06 10:42] LABS: CREATINE KINASE 51 IU/L (23-200)
[2016-06-06 11:22] LABS: CK-MB 0.84 ng/ml (0.0-2.4); TROPONIN-I < 0.012 ng/ml (0.00-0.12)
--- NOTE | 2016-06-06 12:06 | PDOCDIS ---
Discharge Instructions DIAGNOSIS Discharge Diagnosis: GERD CONDITION Patient Condition: Stable HOME CARE INSTRUCTIONS: Diet Instructions: Low Fat /Cholesterol FOLLOW UP/APPOINTMENTS Appointments Follow-up with your PCP in 1 week. Please have your PCP arrange for outpatient esophagogastroduodenoscopy. OTHER ORDERS: Other Orders: 1. Resume home medications. 2. Take a low cholesterol, low spicy diet. 3. Resume activities as tolerated. KIKO CHURCH NP June 06, 2016 12:06 KIKO CHURCH NP June 06, 2016 12:06
--- NOTE | 2016-06-06 12:25 | QN ---
Documentation Comment Observation Note: Time: 4 hours Family Hx: Negative for diabetes Evaluation: Multiple exams showed improving symptoms and no evidence of clinical decompensation. The patient was seen by Jose Buckner and he felt the patient was stable for discharge. He has already written discharge instructions. Patient will need to follow-up closely with the primary doctor within 24 hours for reevaluation. TUCKER JENKINS MD June 06, 2016 12:25
[2016-06-06 12:34] VITALS: BP 144/68; PULSE 82; RESP 18
--- NOTE | 2016-06-06 12:54 | DS ---
DATE OF ADMISSION: 06/06/2016 DATE OF DISCHARGE: 06/06/2016 TIME OF ADMISSION: 3:23 a.m. TIME OF DISCHARGE: 12:15 p.m. FINAL DIAGNOSES: 1. Abdominal pain secondary to GERD. 2. Leukocytosis of unclear etiology. 3. Essential hypertension. 4. Dyslipidemia. 5. Microcytic, hypochromic anemia. 6. Ventral hernia. [employer] SUPERINTENDENT 1. Scott Parr MD, Cardiology. HOSPITAL COURSE: This is a 66-year-old male with past medical history of essential hypertension, dyslipidemia, and possible coronary artery disease, who presented to the emergency room with 1 day of epigastric pain/discomfort. The patient verbalized the pain as sharp with radiation to the left chest. The patient denies any nausea or vomiting. The patient verbalized the pain as 10/ 10 in intensity. The patient verbalized a similar episode approximately 1 month ago and this has been precipitated by eating from outside. The patient denied any fevers, chills, cough or sputum production. In the emergency room, the patient underwent a CT scan of the abdomen and pelvis that showed a large right ventral abdominal wall hernia containing a right and transverse colon, unchanged from prior examination. The CT also showed bilateral inguinal hernias containing fat. The lower part of the lung that was seen on the abdominal CT scan showed atelectasis and emphysematous changes. The plan was to admit the patient to inpatient setting to evaluate for any underlying acute coronary syndrome. Hence, there was an order for admission to inpatient telemetry floor. A 2D echocardiogram was ordered. Serial troponins were ordered. The patient's serial troponins remained negative x3. The 2D echocardiogram is pending. The patient was evaluated by cardiology and Cardiology felt that the patient does not need any further cardiac evaluation, and the patient's presentation is most probably secondary to gastrointestinal symptoms, possibly GERD versus others. Hence, the patient will be discharged home today to be followed up with outpatient gastroenterology for esophagogastroduodenoscopy in the near future. The patient does not require inpatient hospitalization for elective esophagogastroduodenoscopy. The patient was ruled out for any underlying acute coronary syndrome. DISCHARGE DISPOSITION/PLAN: The patient will be discharged home today. The patient was instructed to resume his home medications. He was instructed to take a low-cholesterol, low spicy diet. He was instructed to resume activities as tolerated. CONDITION AT DISCHARGE: Stable. FOLLOWUP: The patient was instructed to go to his primary care physician within the next week and arrange with primary care physician for outpatient esophagogastroduodenoscopy. PERTINENT LABORATORY AND DIAGNOSTIC DATA: 1. Latest CBC: WBC 12.3, hemoglobin 11.7, hematocrit 36.6, platelet count 317. 2. Latest BMP: Sodium 137, potassium 4.0, chloride 107, carbon dioxide 26, anion gap 11, BUN 17, creatinine 0.93, glucose 107, calcium 9.44, magnesium 2.0. 3. Fasting lipid panel: Triglycerides 224. Total cholesterol 226, LDL 153, HDL 28. 4. Chest x-ray. No evidence of acute cardiopulmonary disease or aortic atherosclerosis. 5. CT scan of the abdomen and pelvis. Large right ventral abdominal wall hernia containing right and transverse colon, unchanged. There is no bowel obstruction. Bilateral small inguinal hernias containing fat. Status post right nephrectomy. Vascular calcifications reflective of atherosclerosis. Mild bibasilar atelectasis and emphysematous changes. The case and management of this patient was fully discussed with Dr. West. Approximately at 35 minutes was spent on coordinating the discharge on this patient. KIKO WEST MD, AM/ALLAN Conf#: [id number] DID#: [id number] MTDD
--- NOTE | 2016-06-07 05:16 | CONS ---
DATE OF ADMISSION: 06/05/2016 DATE OF CONSULTATION: TYPE OF CONSULTATION: Cardiology REFERRING PHYSICIAN: , Shaun Buckner NP REASON FOR CONSULTATION: Rule out angina. CHIEF COMPLAINT: Abdominal pain. HISTORY OF PRESENT ILLNESS: Thank you for this referral. History is obtained from the patient, rev iew of the chart, discussion with physician and staff. This is 66-year-old gentleman with history o f hypertension, dyslipidemia, who presented here with complaint of mostly diffuse abdominal and righ t-sided pain and discomfort. He denies any chest pain or pressure to me, although in the initial H and P he said the pain was going to his chest as well. He said the pain has resolved now. He was a lso here recently for the same symptoms. The patient does not walk much. PAST MEDICAL HISTORY: History of hypertension, history of dyslipidemia, history of apparently hemat uria. He said that in 2007 he had severe anemia due to blood loss. Hemoglobin was 4 at that time. At that time, his cardiac enzyme was slightly elevated. He has had a stress test done after that a nd he said it was completely normal. SOCIAL HISTORY: The patient denies active tobacco or drug abuse to me. FAMILY HISTORY: No reported early coronary artery disease. ALLERGIES: PENICILLIN. MEDICATIONS: As per medication reconciliation, personally reviewed. PHYSICAL EXAMINATION: VITAL SIGNS: Temperature 98.2, heart rate of 72, blood pressure 149/82, respiratory rate of 18, sat urating 97%. HEENT: Normocephalic, atraumatic. Pupils are equal. CARDIOVASCULAR: Regular rate and rhythm, systolic murmur. PULMONARY: With no wheezes, no rhonchi. GASTROINTESTINAL: Soft. There is a hernia on the right side. No rebound or guarding. EXTREMITIES: Trivial edema. NEUROLOGIC: Awake and alert. PSYCHIATRIC: Calm, pleasant. LABORATORY DATA: WBC of 12.3, hemoglobin 11.7, platelets of 317. Sodium 137, potassium 4, BUN of 1 7, creatinine 0.93, glucose 107. Troponin less than 0.012. Cholesterol 226, LDL 153, HDL of 28. A ST of 29. EKG showed normal sinus rhythm, normal ECG. Abdominal and pelvic CT shows large right ventral abdom inal hernia containing right and transverse colon, unchanged. No obstruction. ASSESSMENT AND PLAN: 1. Abdominal pain does not appear to be anginal with no complaints of chest pain to me. 2. Hypertension. 3. Dyslipidemia. 4. History of severe anemia secondary to bleeding, currently has stabilized. 5. Ventral hernia. 6. Leukocytosis. RECOMMENDATIONS: An echo has been ordered, is pending. Cardiac enzymes have been negative so far. The patient had no anginal chest pain. At this point, I do not see much benefit from any stress t est on this patient, his pain appeared to be GI related clinically, GI workup and treatment as per internal medicine. Consider GI consultation if needed. Dictated By: GLORIA POTTS MD AV/ALLAN Conf#: [id number] DID#: [id number] CC: SHAUN BUCKNER [employer]; ;*[facility]*
== END 2016-06-06 12:37 | disposition home or self-care (01) ==
LOC: E/R 19:42
DX: R10.13 Epigastric pain (principal); R07.9 Chest pain, unspecified; I10 Essential (primary) hypertension; Z79.82 Long term (current) use of aspirin; Z85.51 Personal history of malignant neoplasm of bladder; Z87.891 Personal history of nicotine dependence
CPT/HCPCS: 36415; 71010; 74176; 80053; 80061; 81001; 82550; 82553; 83036; 83690; 83735; 84443; 84484; 85025; 85610; 85730; 93005; 96374; 96375; C9113; J1170; J2270; J2405; J7030; Z7502; Z7610; 81003

== ENCOUNTER 2017-12-13 00:38 | Emergency (ER) | END 2017-12-13 03:31 | disposition home or self-care (01) ==